=== PATIENT | male | born 2000 | race Caucasian/White ===

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

== ENCOUNTER 2021-11-30 12:04 | Emergency (ER) | payer BC, OTHER ==
[2021-11-30 12:51] VITALS: BP 119/72; PULSE 103
[2021-11-30 13:03] LABS: CORONAVIRUS COVID-19 NAA NEGATIVE (NEGATIVE); RESPIRATORY SYNCYTIAL VIR NAA NEGATIVE (NEGATIVE)
[2021-11-30 13:34] LABS: ANION GAP 8.9 meq/L (7-15); CHLORIDE,CL 106 mmol/L (98-107); SODIUM,NA 141 mmol/L (136-145)
[2021-11-30 13:35] LABS: ESTIMATED GFR 130 mL/min (>=60)
== END 2021-11-30 14:04 | disposition home or self-care (01) ==
LOC: LL.ED 12:04
DX: J03.90 Acute tonsillitis, unspecified (principal); J36 Peritonsillar abscess; E66.9 Obesity, unspecified; Z88.1 Allergy status to other antibiotic agents; Z88.2 Allergy status to sulfonamides; Z79.899 Other long term (current) drug therapy; Z72.0 Tobacco use; Z20.822 Contact with and (suspected) exposure to COVID-19
CPT/HCPCS: 0241U; 36415; 80053; 85025; 86140; 87081; 87430; 99283